=== PATIENT | female | born 1965 | race Caucasian/White ===

== ENCOUNTER 2023-04-16 08:15 | Emergency (ER) | payer OTHER, SELFPAY ==
[2023-04-16] VITALS (10 sets, daily range): BP systolic 116–150; BP diastolic 82–98; PULSE 60–85; RESP 13–19; TEMP 36.7–37.1; O2SAT 96–98; BMI 27.4
--- NOTE | 2023-04-16 08:23 | ECG_ITS ---
APPROVED REPORT Exam: Resting ECG HR:68 bpm ECG Measurements Heart Rate 68 AXES TN 175 P 64 QRSd 98 QRS 3 QT 400 T 162 QTc [address] DEVIATION AND MODERATE T-WAVE ABNORMALITY, CONSIDER INFERIOR ISCHEMIA [-0.1+ mV T-WAVE IN II/aVF] ABNORMAL ECG UNCONFIRMED REPORT Electronically signed by : Dean Gallardo MD 04/18/2023 18:47:19
--- NOTE | 2023-04-16 08:37 | HMH.EDGENADL ---
Discharge Plan Disposition Patient Disposition: Home, Self-Care Condition: Good Prescriptions Prescriptions: No Action cephalexin 500 mg capsule 500 mg PO BID Qty: 10 0RF Referrals Follow up/Referrals: Savi Walton APRN [Primary Care Provider] - See instructions Clinical Impressions Clinical Impression: Vertigo Discharge ED Provider: Barrera Flynn General Adult HPI General Chief complaint: Arrhythmia/Palpitations Stated complaint: heart racing, anxiety Time Seen by Provider: 04/16/23 08:37 Mode of Arrival: Ambulatory Source of Information: Patient Limitations: No Limitations Description of Symptoms (Recalled from ER Triage Doc. by RN): 57 yo F presents to ED with c/o high heart rate, anxiety, dizziness. pt reports symptoms ongoing for a few weeks, but last night her heart rate was the highest its ever been at 160 . pts reports similar episodes happening in the past and her potassium was messed up. History of Present Illness HPI narrative: Patient presents for evaluation of several symptoms including intermittent tachycardia, without associated chest pain or palpitations, episodic in nature and resolve spontaneously, no previous therapies, has had similar symptoms before associated with electrolyte disturbances. Patient describes room spinning feeling of unsteadiness with no exacerbating or alleviating factors, which resolved spontaneously. She denies any unsteadiness at this time. No ear pain. No fevers or chills or nausea or vomiting, of note has been on keto diet for approximately 8 weeks now, describes diet of leafy vegetables, meats, which she is previously well tolerated. Recent initiation of p.o. vitamin D supplementation after going approximately 2 months without this medication. No other [id number] medications. No previous therapies today. No headache or nausea or vomiting. No associated dsypnea. No syncope or presyncope. Related Data Previous Rx's Medication Instructions Recorded cephalexin 500 mg capsule 500 mg PO BID #10 caps 12/06/22 Allergies Allergy/AdvReac Type Severity Reaction Status Date / Time No Known Allergies Allergy Verified 04/16/23 08:33 [facility] Disclaimer: The information contained in this section may have been updated after the patient was seen, as this information can be updated by other users. Surgical History (Updated 12/05/22 @ 13:14 by RAJAT Beaulieu) Hx of hysterectomy Social History Smoking Status: Never smoker alcohol intake: current current occupational status: employed Travel in the last 8 weeks: Inside the [place] ROS Obtained: Yes Systems reviewed as appropriate & no additional complaints except as documented Physical Exam General General appearance: alert and in no apparent distress Head Head exam: atraumatic and normocephalic Eye Eye exam: Present normal appearance Neck Neck exam: Present normal inspection Chest Chest inspection: Present normal inspection and symmetric chest wall rise Respiratory Respiratory exam: Present normal lung sounds bilaterally; Absent respiratory distress Cardiovascular Cardiovascular exam: Present regular rate and normal rhythm Abdominal Exam Abdominal exam: Present soft Neurological Exam Neurological exam: Present alert and oriented X3 Psychiatric Psychiatric exam: Present normal affect and normal mood Skin Skin exam: Present warm and dry Medical Decision Making Medical Records Medical records reviewed: Yes I reviewed the patient's medical records. Justyn Inquiry Pt receiving controlled substance: No Vital Signs: 04/16/23 08:29 04/16/23 08:25 04/16/23 08:30 Temperature 98.8 F Temperature Source Oral Pulse Rate 66 69 Pulse Rate [Left] 73 Respiratory Rate 16 13 Blood Pressure 150/98 H 126/89 Blood Pressure [Right Arm] 150/98 H Blood Pressure Mean 131 103 Blood Pressure Mean [Right Arm] 115 02
[2023-04-16 09:32] LABS: Basophils # 0.1 K/mm3 (0-0.2); Basophils % 0.6 % (0.1-2.0); Eosinophils # 0.1 K/mm3 (0.0-0.4); Eosinophils % 0.7 % (0.1-12.0); Hematocrit 49.4 % (37.0-47.0); Hemoglobin 16.3 g/dL (12.2-16.2); Lymphocytes # 3.4 K/mm3 (0.7-4.5); Lymphocytes % 33.3 % (10-50); Mean Corpuscular HGB Conc 32.9 g/dL (31.8-35.4); Mean Corpuscular Volume 91.3 fl (81-99); Mean Platelet Volume 8.4 fl (7.4-10.4); Monocytes # 0.5 K/mm3 (0.1-1.0); Monocytes % 4.5 % (1.7-9.3); Neutrophils # 6.2 K/mm3 (1.8-7.8); Platelet Count 335 K/mm3 (142-424); Red Blood Count 5.41 M/mm3 (4.20-5.40); Red Cell Distribution Width 13.6 % (11.5-17.5); White Blood Count 10.1 K/mm3 (4.8-10.8)
[2023-04-16 09:34] LABS: Chloride 104 mmol/L (98-107); Potassium 4.2 mmoL/L (3.5-5.1); Sodium 142 mmol/L (136-145)
[2023-04-16 09:37] LABS: Alanine Aminotransferase 30 U/L (12-78); Albumin Level 4.8 g/dl (3.5-5.0); Albumin/Globulin Ratio 1.5 (1.1-1.8); Alkaline Phosphatase 73 U/L (38-126); Anion Gap 15.2 mEq/L (5-15); Aspartate Amino Transferase 30 U/L (14-36); Bilirubin,Total 0.6 mg/dl (0.2-1.3); Blood Urea Nitrogen 16 mg/dl (7-17); Carbon Dioxide 27 mmol/L (22.0-30.0); Creatinine Clearance Estimated 104 mL/min (50-200); Estimated Glomerular Filt Rate 87 ml/min (>60); GFR (African American) 105 ML/MIN (>60); Globulin 3.3 g/dL (1.3-3.2); Phosphorous 4.7 mg/dl (2.5-4.5); Total Protein,Serum 8.1 g/dl (6.3-8.2)
[2023-04-16 09:38] LABS: Calcium 10.2 mg/dl (8.4-10.2); Glucose 118 mg/dl (74-100); Magnesium 2.1 mg/dl (1.6-2.3)
[2023-04-16 09:56] LABS: Troponin I < 0.01 ng/ml (0.00-0.034)
[2023-04-16 10:08] LABS: Thyroid Stimulating Hormone 1.62 uIU/mL (0.465-4.68)
--- NOTE | 2023-04-16 10:30 | PC.NURSE ---
rounded on pt, blankets given, MD at bs
== END 2023-04-16 16:31 | disposition home or self-care (01) ==
PROVIDERS: Emergency Provider Emergency Medicine; PCP Nurse Practitioner
DX: R42 Dizziness and giddiness (principal); R00.0 Tachycardia, unspecified; F41.9 Anxiety disorder, unspecified
CPT/HCPCS: 80053; 83735; 84100; 84439; 84443; 84484; 85025; 93005; 96360; 99285